=== PATIENT | female | born 1980 | race Caucasian/White ===

== ENCOUNTER 2020-09-13 07:55 | Outpatient (REF) | payer OTHER, SELFPAY | END 2020-09-13 07:56 | disposition home or self-care (01) | LOC: HO.HMGCLDS 07:55 | PROVIDERS: PCP Internal Medicine; Visit Provider Internal Medicine | DX: Z20.828 Contact with and (suspected) exposure to other viral communicable diseases (principal) | CPT/HCPCS: C9803; U0003 ==

== ENCOUNTER 2021-10-16 09:32 | Outpatient (REF) | payer OTHER, SELFPAY | END 2021-10-16 09:33 | disposition home or self-care (01) | LOC: HO.HMGCLDS 09:32 | PROVIDERS: Visit Provider Internal Medicine | DX: Z20.822 Contact with and (suspected) exposure to COVID-19 (principal) | CPT/HCPCS: C9803; U0003; U0005 ==